=== PATIENT | male | born 1965 | race Caucasian/White ===

== ENCOUNTER → 2018-09-06 14:41 | Outpatient (CLI) | payer OTHER, SELFPAY ==
--- NOTE | 2018-09-06 | DI.US.S_ITS ---
PROCEDURE: US SOFT TISSUE HEAD AND NECK INDICATIONS: LEFT POSTERIOR NECK MASS TECHNIQUE: Real-time scanning was performed of the neck region of interest, with image documentation. COMPARISON: None. FINDINGS: At the site of clinical concern involving the left posterolateral neck, there is an ovoid subcutaneous nodule, that demonstrates a hyperechoic center and a hypoechoic rim with vascularity seen along the fatty hilum. This measures 8 x 4 x 10 mm. IMPRESSION: Normal appearing, non-enlarged lymph node is seen at the site of clinical concern. Dictated by: Vic Araiza M.D. on 09/06/2018 at 16:16 Approved by: Vic Araiza M.D. on 09/06/2018 at 16:17
== END ==
PROVIDERS: PCP Family Medicine; Visit Provider Family Medicine
DX: R22.1 Localized swelling, mass and lump, neck (principal)
CPT/HCPCS: 76536

== ENCOUNTER 2018-12-05 13:25 | Emergency (ER) | payer OTHER, SELFPAY ==
[2018-12-05 13:40] VITALS: BP 121/85; PULSE 56; RESP 16; TEMP 36.9; O2SAT 100; BMI 22.9
--- NOTE | 2018-12-05 13:47 | DI.RAD.S_ITS ---
PROCEDURE: XR LUMBAR SPINE 2-3V INDICATIONS: c/o low back pain after lifting heavy object TECHNIQUE: 3 views of the lumbar spine were acquired. COMPARISON: None. FINDINGS: Bones: 5 [id number] vertebrae are present. There is normal bony alignment. No vertebral body compression fractures. No suspicious bony lesions. Multilevel endplate osteophytes. Soft tissues: Overlying bowel gas pattern is normal. No suspicious soft tissue calcifications. IMPRESSION: No acute fracture. No osseous lesion. If clinical suspicion and/or symptoms persist, further assessment with repeat plainfilms, or advanced imaging (e.g., CT, MRI, or bone scan) may be helpful for further assessment. Dictated by: Edwige Milner M.D. on 12/05/2018 at 14:25 Approved by: Edwige Milner M.D. on 12/05/2018 at 14:26
--- NOTE | 2018-12-05 15:18 | ED.BACK ---
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 and felt instant pain in his lower back and it is worse on L side and goes into his L buttock, pain increases with movement and is better when remaining still, denies any old injury or issues with his back in past, no trouble urinating, no incontinence, no numbness, no trouble breathing or cp MD Complaint: back pain Onset (ago): day(s) Duration: constant Similar Symptoms Previously: No Location: lumbar spine, right lower back and left lower back Severity: severe Quality: sharp Radiation: buttocks Relieving factors: none Exacerbating factors: movement Context: while lifting Associated symptoms: denies other symptoms Related Data Previous Rx's Medication Instructions Recorded cyclobenzaprine 10 mg PO Q8H PRN #20 tab 12/05/18 tramadol [Ultram] 50 mg PO Q6H PRN #20 tab 12/05/18 Allergies Allergy/AdvReac Type Severity Reaction Status Date / Time No Known Drug Allergies Allergy Verified 12/05/18 13:45 Review of Systems <LEONARDO Neal - Last Filed: 12/05/18 15:34> Review of Systems ROS Unobtainable: All systems reviewed & are unremarkable except as noted in HPI and below Constitutional Reports as per HPI, Reports system reviewed and no additional complaints, except as docu and Denies weakness ENT Ears, Nose, Mouth, and Throat: Denies neck pain Cardiovascular Denies chest pain, Denies irregular heart rhythm, Denies lightheadedness, Denies palpitations, Denies dyspnea, Denies dyspnea on exertion and Denies orthopnea Respiratory Denies cough, Denies dyspnea, Denies dyspnea on exertion and Denies wheezing Gastrointestinal Gastrointestinal: Denies abdominal pain, Denies change in bowel habits, Denies diarrhea, Denies nausea and Denies vomiting Genitourinary Denies hematuria, Denies flank pain, Denies urinary incontinence and Denies urinary urgency Musculoskeletal Reports as per HPI, Reports back pain, Reports limited range of motion, Denies muscle weakness, Denies neck pain, Denies numbness and Denies radiating pain into limb Neurologic Denies numbness, Denies radicular pain and Denies weakness Endocrine Denies palpitations Allergic/Immunologic Denies wheezing PFSH <LEONARDO Neal - Last Filed: 12/05/18 15:34> Social History Smoking Status: Never smoker Social History Smoking Status: Never smoker Exam <LEONARDO Neal - Last Filed: 12/05/18 15:34> Initial Vital Signs Initial Vital Signs: Vital Signs Temperature 98.4 F 12/05/18 13:40 Pulse Rate 56 L 12/05/18 13:40 Respiratory Rate 16 12/05/18 13:40 Blood Pressure 121/85 12/05/18 13:40 Pulse Oximetry 100 12/05/18 13:40 Const General: cooperative, healthy appearing, comfortable, well developed and well groomed Nutritional Appearance: average body habitus Orientation: alert, awake and oriented x3 HENMT Head: normal to inspection and normocephalic Ears: hearing grossly normal bilaterally, external ears normal, TM's normal bilaterally and mastoids normal Nose: external nose normal and nares normal Face and sinus: normal facial exam, sinuses nontender and face symmetric Mouth: oral mucosae normal, lip normal, tongue normal, oropharynx normal and moist mucous membranes Teeth and gingiva: dentition normal and gingiva normal Throat: posterior oropharynx normal, tonsils normal and uvula midline Eyes General: appearance normal, both eyes and all related structures Visual Guzman: normal visual guzman by confrontation Eyelids: eyelids normal Conjunctivae: conjunctivae normal Sclera: sclerae normal Pupils: PERRL EOM: EOM intact bilaterally Neck Neck: normal visual inspection, full ROM, no meningeal signs, trachea midline, supple and No lymphadenopathy Chest Chest: normal inspection of the chest Resp Effort & Inspection: normal respiratory effort and able to speak in complete sentences Auscultation: clear to auscultation bilaterally Cardio Rate: regular rate Rhythm: regular rhythm Heart Sounds: S1 normal and S2 normal Back/Spine/Pelvis Back: back tenderness and No CVA tenderness Cervical Spine: cervical ROM normal Thoracic/Lumbar Spine: No thoraco-lumbar ROM normal, pain with thoraco-lumbar ROM and thoraco-lumbar ROM limited Other: no vertebral tenderness, tender over lumbar muscle area bilaterally and more tenderness on L, decreased rom secondary to pain Skin General: no rashes or lesions noted, elasticity normal, turgor normal and dry skin Neuro General: alert, awake, oriented x3, moves all extremities and meningeal signs present Cognition: normal cognition Speech: speech normal Gait: normal gait Motor: muscle tone normal throughout Sensory Exam: no sensory deficits noted Extrem General: normal to inspection and full ROM Right upper extremity: full ROM Left upper extremity: full ROM Right lower extremity: full ROM Left lower extremity: full ROM Psych Appearance: grossly normal and well kempt Mental Status: mental status grossly normal Speech and Movement: speech and movement normal Mood: congruent mood Affect: normal affect Attitude: cooperative Thought Process: normal Thought Content: normal Judgment: judgment good <Jess Taylor DO - Last Filed: 12/06/18 10:48> Initial Vital Signs Initial Vital Signs: Vital Signs Temperature 98.4 F 12/05/18 13:40 Pulse Rate 56 L 12/05/18 13:40 Respiratory Rate 16 12/05/18 13:40 Blood Pressure 121/85 12/05/18 13:40 Pulse Oximetry 100 12/05/18 13:40 Course <LEONARDO Neal - Last Filed: 12/05/18 15:34> Orders Ordered: Discontinued Medications Hydrocodone Bitart/Acetaminophen ([place] 5/325) 1 tab PO NOW ONE Stop: 12/05/18 15:27 Last Admin: 12/05/18 15:36 Dose: 1 tab Ketorolac Tromethamine (Toradol) 60 mg IM NOW ONE Stop: 12/05/18 15:27 Last Admin: 12/05/18 15:36 Dose: 60 mg Vital Signs - 8 hr 12/05/18 13:40 12/05/18 15:21 Temperature 98.4 F Pulse Rate 56 L 50 L Respiratory Rate 16 14 Blood Pressure 121/85 Blood Pressure [Right Arm] 136/85 Pulse Oximetry 100 100 <Jess Taylor DO - Last Filed: 12/06/18 10:48> Orders Ordered: Discontinued Medications Hydrocodone Bitart/Acetaminophen ([place] 5/325) 1 tab PO NOW ONE Stop: 12/05/18 15:27 Last Admin: 12/05/18 15:36 Dose: 1 tab Ketorolac Tromethamine (Toradol) 60 mg IM NOW ONE Stop: 12/05/18 15:27 Last Admin: 12/05/18 15:36 Dose: 60 mg Vital Signs - 8 hr 12/05/18 13:40 12/05/18 15:21 Temperature 98.4 F Pulse Rate 56 L 50 L Respiratory Rate 16 14 Blood Pressure 121/85 Blood Pressure [Right Arm] 136/85 Pulse Oximetry 100 100 MDM - Back Pain/Injury <LEONARDO Neal - Last Filed: 12/05/18 15:34> Differential Diagnosis Differential diagnosis: Likely lumbar radiculopathy, sciatica and strain of lumbar region Imaging Data LS spine: Radiologist's impression: PROCEDURE: XR LUMBAR SPINE 2-3V INDICATIONS: c/o low back pain after lifting heavy object TECHNIQUE: 3 views of the lumbar spine were acquired. COMPARISON: None. FINDINGS: Bones: 5 [id number] vertebrae are present. There is normal bony alignment. No vertebral body compression fractures. No suspicious bony lesions. Multilevel endplate osteophytes. Soft tissues: Overlying bowel gas pattern is normal. No suspicious soft tissue calcifications. IMPRESSION: No acute fracture. No osseous lesion. If clinical suspicion and/or symptoms persist, further assessment with repeat plainfilms, or advanced imaging (e.g., CT, MRI, or bone scan) may be helpful for further assessment. Dictated by: Edwige Milner M.D. on 12/05/2018 at 14:25 Approved by: Edwige Milner M.D. on 12/05/2018 at 14:26 Discharge Plan Departure Patient Disposition: Home Clinical Impression: Strain of lumbar region Qualifiers: Encounter type: initial encounter Qualified Code(s): S39.012A - Strain of muscle, fascia and tendon of lower back, initial encounter Discharge Date/Time: 12/05/18 16:20 Interventions: ED Discharge Assessment Last Done: 12/05/18 16:47 Instructions: DI for Low Back Pain, DI for Back Strain or Sprain Prescriptions: New cyclobenzaprine 10 mg tablet 10 mg PO Q8H PRN (Reason: muscle spasm) Qty: 20 RF: 0 tramadol [Ultram] 50 mg tablet 50 mg PO Q6H PRN (Reason: pain) Qty: 20 RF: 0 Referrals: Kaiser Cheek DO [Primary Care Provider] - (follow up recommended in 5-7 days if no better ) <Jess Taylor DO - Last Filed: 12/06/18 10:48> Cosign ED Attending Cosignature Attestation: I was immediately available in the department for consultation. Documentation has been reviewed. I agree with assessment and plan.
[2018-12-05 15:21] VITALS: BP 136/85; PULSE 50; RESP 14; O2SAT 100
[2018-12-05] MEDS: KETOROLAC 60 MG/2 ML VIAL IM (15:36)
[2018-12-05] MEDS: HYDROCODONE/ACET 5/325 TABLET 1 TAB PO (15:36)
[2018-12-05 16:01] VITALS: BP 129/83; PULSE 59; RESP 18; O2SAT 100
== END 2018-12-05 16:20 | disposition home or self-care (01) ==
PROVIDERS: Emergency Provider Nurse Practitioner; PCP Family Medicine
DX: S39.012A Strain of muscle, fascia and tendon of lower back, initial encounter (principal)
CPT/HCPCS: 72100; 96372; 99282; 99283; J1885

== ENCOUNTER → 2020-12-28 09:54 | Outpatient (CLI) | payer OTHER, SELFPAY ==
[2020-12-28 12:15] LABS: Alanine Aminotransferase 26 IU/L (<50); Albumin 4.2 g/dL (3.5-5.0); Albumin Globulin Ratio 1.2 (1.0-2.8); Alkaline Phosphatase 74 U/L (38-126); Aspartate Aminotransferase 28 IU/L (17-59); BUN Creatinine Ratio 15.5 (6-22); Bilirubin Total 0.4 mg/dL (0.2-1.3); Blood Urea Nitrogen 15 mg/dL (9-20); Calcium 9.6 mg/dL (8.4-10.2); Carbon Dioxide 28 mmol/L (22-32); Chloride 103 mmol/L (98-107); Cholesterol 211 mg/dL (140-199); Estimated Glomerular Filt Rate > 60.0 mL/min (>60); Globulin 3.5 g/dL (1.7-4.1); Glucose 86 mg/dL (70-100); HDL Cholesterol 32 mg/dL (40-60); HEMOLYSIS < 15 (0-50); LDL Cholesterol Calculated 159 mg/dL (<100); Potassium 4.3 mmol/L (3.4-5.1); Sodium 139 mmol/L (137-145); Total Protein 7.7 g/dL (6.3-8.2); Triglycerides 100 mg/dL (35-150)
[2020-12-28 12:48] LABS: Prostate Specific Antigen Scrn 1.02 ng/mL (0.1-4.0)
== END ==
PROVIDERS: PCP Internal Medicine; Referring Provider Internal Medicine; Visit Provider Internal Medicine
DX: N13.8 Other obstructive and reflux uropathy (principal); N40.1 Benign prostatic hyperplasia with lower urinary tract symptoms; Z13.1 Encounter for screening for diabetes mellitus; Z13.220 Encounter for screening for lipoid disorders; Z13.6 Encounter for screening for cardiovascular disorders; Z12.5 Encounter for screening for malignant neoplasm of prostate
CPT/HCPCS: 36415; 80053; 80061; G0103

== ENCOUNTER 2023-05-08 07:04 | Day surgery (SDC) | payer OTHER, SELFPAY ==
[2023-05-08 07:16] VITALS: BP 129/83; PULSE 72; RESP 17; TEMP 36; O2SAT 97; BMI 24.3
[2023-05-08] MEDS: LACTATED RINGERS 1,000 ML 150 ML IV (07:30)
--- NOTE | 2023-05-08 08:14 | PM.HP.1 ---
History of Present Illness History of Present Illness Date Patient Seen: 05/08/23 Date of Onset of Symptoms: 05/08/23 Chief complaint: Screening Colonoscopy Narrative: Family history of colon cancer in his sister, this is his 2nd colonoscopy on a 5 year rotation [facility] Medical History Anxiety (~2005) BPH w urinary obs/LUTS Chicken pox (~1970) Chronic back pain (~1999) Chronic migraine (~1994) Generalized anxiety disorder Hearing loss Hip joint pain (~1999) Mumps (~1972) Osteoarthritis (~2006) Paruresis Skin cancer (~2018) Tinnitus (~2001) Winter itch (~2006) Surgical History Anesthesia S/P appendectomy (~1979) Family History Father Cancer Hypertension Heart disease Mother Vasculitis Sister Colon cancer Grandfather Heart disease Grandmother Aneurysm Grandfather Heart disease Social History household members: spouse Smoking Status: Current every day smoker alcohol intake: current Meds Home Medications and Allergies Home Medications Medication Instructions Recorded Confirmed Type tamsulosin 0.4 mg capsule 0.4 mg PO DAILY 11/29/20 05/08/23 History sodium,potassium,mag sulfates 17.5 See Rx Instructions PO .COMPLEX 03/04/23 05/08/23 Rx gram-3.13 gram-1.6 gram oral soln #354 mL (Suprep Bowel Prep Kit) Allergies Allergy/AdvReac Type Severity Reaction Status Date / Time No Known Drug Allergies Allergy Verified 01/10/21 15:51 Review of Systems Review of Systems ROS: Yes All systems reviewed with the patient and are negative except as otherwise documented Exam Vital Signs (past 8 hours): - 05/08/23 07:16 Temperature 96.8 F L Pulse Rate 72 Respiratory Rate 17 Blood Pressure 129/83 Pulse Oximetry 97 Oxygen Delivery Method Room Air Oxygen Delivery Method Room Air Const General: cooperative, healthy appearing and comfortable Nutritional Appearance: average body habitus HENMT Head: normocephalic and atraumatic Face and sinus: normal facial exam Eyes General: appearance normal, both eyes and all related structures Sclera: sclerae normal Neck Neck: trachea midline Resp Effort & Inspection: normal respiratory effort and able to speak in complete sentences Cardio Rate: regular rate Rhythm: regular rhythm GI Inspection: normal to inspection Palpation: soft Skin General: elasticity normal and turgor normal Neuro General: patient alert, patient awake and patient oriented x3 Cognition: normal cognition Psych Appearance: grossly normal Judgment: judgment good Assessment & Plan Assessment & Plan narrative: Family history for colon cancer Colonoscopy with anesthesia Time Spent With Patient Time with patient: less than 30 minutes
--- NOTE | 2023-05-08 08:44 | PM.OP.COLON ---
Operative Date/Time/Diagnoses Date of procedure: 05/08/23 Time of procedure: 08:44 Pre-op diagnosis: Family history colon cancer Post-op diagnosis: same Procedure & Clinicians Study performed: Colonoscopy with anesthesia Same procedure as scheduled: Yes Indications: Family history colon cancer Surgeon: Sonya Fontanez Procedure Notes Procedure in detail: Preop diagnosis: Family history colon cancer Postop diagnosis: Same Operative procedure: Colonoscopy with anesthesia Surgeon: Elin Fontanez MD Findings: No polyps, no significant diverticulosis, prostate enlarged but smooth no masses, he does have hemorrhoidal tags and possibly an inclusion cyst on the external anus Procedure: Patient placed in a lateral position. Rectal exam performed showing normal tone no masses. Prostate exam as above Scope inserted into rectum and advanced to ileocecal valve with minimal difficulty. Insufflation extraction scope and the above findings. Retroflex showed grade 2 hemorrhoids in the rectum. Impression: No polyps, only 1 diverticuli seen in the sigmoid colon. Prostate is enlarged but smooth. External hemorrhoidal tags as well as an inclusion cyst all benign Plan: Repeat colonoscopy in 5 years due to family history Findings: internal hemorrhoids Specimen(s): none sent Complications: none Post-procedure Recommendations: Colonoscopy in 5 years Follow up: as needed Disposition: PACU
[2023-05-08 08:48] VITALS: BP 109/75; PULSE 67; RESP 17; TEMP 36.1; O2SAT 96
[2023-05-08 08:52] VITALS: BP 106/72; PULSE 64; RESP 17; O2SAT 96
[2023-05-08 08:59] VITALS: BP 106/74; PULSE 62; RESP 14; TEMP 36.7; O2SAT 98
[2023-05-08 09:01] VITALS: BP 119/84; PULSE 66; RESP 10; O2SAT 98
== END 2023-05-08 09:16 | disposition home or self-care (01) ==
PROVIDERS: PCP Internal Medicine; Referring Provider Surgery; Visit Provider Anesthesiology
PROC: 0DJD8ZZ Inspection of Lower Intestinal Tract, Via Natural or Artificial Opening Endoscopic (ICD-10-PCS; CPT 45378; principal; 2023-05-08 08:15)
DX: Z12.11 Encounter for screening for malignant neoplasm of colon (principal); Z80.0 Family history of malignant neoplasm of digestive organs; K64.1 Second degree hemorrhoids; K64.4 Residual hemorrhoidal skin tags; N40.0 Benign prostatic hyperplasia without lower urinary tract symptoms; L72.0 Epidermal cyst
CPT/HCPCS: 45378; J2250; J3010